=== PATIENT | male | born 1995 | race Two or more races ===

== ENCOUNTER 2018-03-20 08:15 | Emergency (ER) | payer OTHER ==
[~2018-03-20] VITALS: Ht 180.3 cm; Wt 104.3 kg
[2018-03-20 08:21] VITALS: BP 141/83
== END 2018-03-20 09:04 | disposition home or self-care (01) ==
LOC: ER 08:15
DX: T78.40XA Allergy, unspecified, initial encounter (principal); J02.9 Acute pharyngitis, unspecified; X58.XXXA Exposure to other specified factors, initial encounter

== ENCOUNTER 2023-10-30 13:30 | Emergency (ER) | payer BC, OTHER ==
[~2023-10-30] VITALS: Ht 182.9 cm; Wt 98.8 kg
[2023-10-30 14:51] LABS: Basophils # (auto) 0 10 ^3/uL (0-0.2); Eosinophils # (auto) 0 10 ^3/uL (0-0.8); Hematocrit 53.8 % (41.0-53.0); Lymphocytes # (auto) 0.3 10 ^3/uL (0.4-5.4); Mean Corpuscular Hemoglobin 28.1 pg (28.0-32.0); Mean Corpuscular Hgb Conc. 33.5 g/dL (32.0-36.0); Mean Corpuscular Volume 83.7 fL (80.0-100.0); Monocytes # (auto) 0.5 10 ^3/uL (0-1.3); Monocytes % (auto) 3.5 % (0.0-12.0); Neutrophils # (auto) 14.7 10 ^3/uL (1.6-8.6); Neutrophils % (auto) 94.5 % (37.0-80.0); Nucleated Red Blood Cells % 0.1 %; Red Blood Cells 6.42 10^6/uL (4.5-5.90); Red Cell Distribution Width 13.1 % (11.8-14.3); White Blood Cell 15.6 10^3/uL (4.4-10.8)
[2023-10-30] MEDS: DICYCLOMINE HCL (10MG/ML) 2 ML AMPULE IM ONE (15:11)
[2023-10-30] MEDS: ONDANSETRON ODT 4 MG TAB PO ONE (15:11)
[2023-10-30] MEDS: SODIUM CHLORIDE 0.9% 1,000 ML IV ONE ×2 (15:11→15:47)
[2023-10-30 15:15] LABS: Alanine Aminotransferase 62 U/L (7-40); Alkaline Phosphatase 67 U/L (46-116); Anion Gap 10 (5-15); Blood Urea Nitrogen 13 mg/dL (9-23); Calcium 10.5 mg/dL (8.7-10.4); Carbon Dioxide 23 mmol/L (20-30); Chloride 105 mmol/L (98-107); Glucose 141 mg/dL (74-106); Sodium 138 mmol/L (136-145)
[2023-10-30 15:16] LABS: Albumin 4.8 g/dL (3.2-4.8); Aspartate Aminotransferase 29 U/L (13-40); Bilirubin, Total 1.4 mg/dL (0.2-1.0)
[2023-10-30 15:25] VITALS: BP 122/65; PULSE 100; RESP 17; TEMP 99; O2SAT 100
[2023-10-30 15:35] LABS: Urine Bacteria FEW /hpf (None Seen); Urine Blood Negative /uL (Negative); Urine Clarity Clear (Clear); Urine Color Yellow (Yellow); Urine Mucus MODERATE (None Seen); Urine Protein, UAD 1+ (Negative); Urine Specific Gravity 1.035 (1.001-1.035); Urine Urobilinogen Normal (Negative); Urine WBC 3 /hpf (0 - 3)
[2023-10-30 15:39] LABS: Lactic Acid w/Reflex 2.7 mmol/L (0.4-2.0)
== END 2023-10-30 16:20 | disposition left against medical advice (07) ==
LOC: ER 13:30
DX: R10.84 Generalized abdominal pain (principal); D72.829 Elevated white blood cell count, unspecified
CPT/HCPCS: 36415; 74176; 80053; 81001; 83605; 83690; 85025; 96360; 96372; 99285; J0500; J7030; Q0162